=== PATIENT | male | born 1945 | race African-American/Black ===

== ENCOUNTER 2016-05-22 20:36 | Emergency (ER) | payer MEDICARE, MEDICAID ==
[~2016-05-22] VITALS: Ht 185.4 cm; Wt 90.0 kg
[~2016-05-22 20:36] MED LIST: DRIS50002 PO; GABA300C3 PO; NOVO7030P2 SQ; OMEG1CAP53 PO; PRIL20CA PO; SULF10SU3 RIGHT EYE; WALKER STANDARD
[2016-05-22 20:43] VITALS: BP 164/84; PULSE 60; RESP 16; TEMP 97.8; O2SAT 99
[2016-05-22] MEDS ORDERED: SODIUM CHLOR 0.9% 1000 ML INJ 1,000 ML IV SCH (20:53)
[2016-05-22] MEDS ORDERED: ONDANSETRON HCL 4 MG/2 ML VIAL IVP ONE (21:00)
--- NOTE | 2016-05-22 21:25 | PD ---
HPI Chief Complaint: GI Complaint Time Seen by Provider: 21:20 Travel History International Travel<30 days: No Contact w/Intl Traveler<30days: No Traveled to known affect area: No History of Present Illness HPI 70-year-old male that presents to the ED for evaluation of nausea and vomiting. Per patient his been ongoing since today. Per patient he does have some epigastric pain when he throws up. Per patient he had 3 episodes while waiting to be seen. Patient states that his doctor decided any medication he doesn't know this is the cause of the symptoms. He denies any lower abdominal pain. No chest pain or shortness of breath. Patient denies any diarrhea or bowel movement issues. No new foods. Has no allergies to medication. Has not taken anything for this. Per patient he started since this morning. No blood. Pain is 2 out of 10 on his epigastric area and gets worse when he throws up. PFSH Past Medical History Arthritis: Yes Asthma: No Blood Disorders: No Anxiety: No Depression: No Heart Rhythm Problems: No Cancer: No Cardiovascular Problems: Yes (htn) High Cholesterol: No Chemotherapy: No Chest Pain: No Congestive Heart Failure: No COPD: No Diabetes: Yes Patient Takes Glucophage: Yes Diminished Hearing: No Endocrine: Yes GERD: Yes Genitourinary: No Hepatitis: Yes (C) Hiatal Hernia: No Hypertension: Yes Immune Disorder: No Implanted Vascular Access Dvce: Yes Musculoskeletal: Yes (HIP REPLACEMENT) Neurologic: No Psychiatric: No Reproductive: No Respiratory: No Immunizations Current: No Pancreatitis: Yes Radiation Therapy: No Sleep Apnea: No Thyroid Disease: No Ulcer: No Influenza Vaccination: Yes Past Surgical History Abdominal Surgery: Yes (CHOLECYSTECTOMY) AICD: No Appendectomy: Yes Arteriovenous Shunt: No Body Medical Devices: HIP REPLACEMENT Cardiac Surgery: No Cholecystectomy: Yes Ear Surgery: No Endocrine Surgery: No Eye Surgery: No Genitourinary Surgery: No Gynecologic Surgery: No Insulin Pump: No Joint Replacement: Yes (LEFT HIP) Neurologic Surgery: No Oral Surgery: No Thoracic Surgery: No Other Surgery: Yes (LEFT FOOT WOUND VAC) Social History Alcohol Use: Yes (OCCASIONALLY) Tobacco Use: No Substance Use: Yes (COCAINE OCC) Allergies-Medications (Allergen,Severity, Reaction): Coded Allergies: No Known Allergies (Verified , 05/22/16) Reported Meds & Prescriptions Reported Meds & Active Scripts Active Zofran (Ondansetron HCl) 4 Mg Tab 4 Mg PO Q6HR PRN Keflex (Cephalexin) 500 Mg Cap 500 Mg PO BID 7 Days Walker Standard 1 Ea Reported Lidocaine Topical (Lidocaine HCl) 5 % Cream 1 Applic TOPICAL DAILY PRN Naproxen 500 Mg Tab 550 Mg PO BID Amlodipine (Amlodipine Besylate) 10 Mg Tab 10 Mg PO DAILY Glyburide 5 Mg Tab 5 Mg PO DAILY Take with meals at the same time each day Tamsulosin (Tamsulosin HCl) 0.4 Mg Cap 0.4 Mg PO HS [id number] Un1 50,000 Unt Cap 50,000 Units PO WEEKLY Gabapentin 300 Mg Cap 300 Mg PO TID Review of Systems Except as stated in HPI: all other systems reviewed are Neg Physical Exam Narrative GENERAL: SKIN: Warm and dry. HEAD: Atraumatic. Normocephalic. EYES: Pupils equal and round. No scleral icterus. No injection or drainage. ENT: No nasal bleeding or discharge. Mucous membranes pink and moist. Tongue is midline. No uvula deviation. NECK: Trachea midline. No JVD. CARDIOVASCULAR: Regular rate and rhythm. No murmurs, S3, S4. RESPIRATORY: No accessory muscle use. Clear to auscultation. Breath sounds equal bilaterally. GASTROINTESTINAL: Abdomen soft, non-tender, nondistended. Hepatic and splenic margins not palpable. MUSCULOSKELETAL: Extremities without clubbing, cyanosis, or edema. No obvious deformities. Patient has full range of motion of the upper and lower extremities bilaterally. 2+ pulses bilaterally. NEUROLOGICAL: Awake and alert. No obvious cranial nerve deficits. Motor grossly within normal limits. Five out of 5 muscle strength in the arms and legs. Normal speech. PSYCHIATRIC: Appropriate mood and affect; insight and judgment normal. Data Data Last Documented VS Vital Signs Date Time Temp Pulse Resp B/P Pulse Ox O2 Delivery O2 Flow Rate FiO2 05/22/16 21:48 74 18 142/66 98 05/22/16 20:43 97.8 Orders Complete Blood Count With Diff (05/22/16 20:53) Comprehensive Metabolic Panel (05/22/16 20:53) Lipase (05/22/16 20:53) Urinalysis - C+S If Indicated (05/22/16 20:53) Iv Access Insert/Monitor (05/22/16 20:53) NPO (05/22/16 20:53) Ondansetron Inj (Zofran Inj) (05/22/16 21:00) Sodium Chlor 0.9% 1000 Ml Inj (Ns 1000 M (05/22/16 20:53) Blood Glucose (05/22/16 21:03) Urine Culture (05/22/16 21:10) Cephalexin (Keflex) (05/22/16 23:00) Labs Laboratory Tests Test 05/22/16 05/22/16 21:10 21:40 Urine Color LIGHT-YELLOW Urine Turbidity CLEAR Urine pH 6.0 Urine Specific [place] 1.012 Urine Protein 30 mg/dL Urine Glucose (UA) 300 mg/dL Urine Ketones NEG mg/dL Urine Occult Blood TRACE Urine Nitrite NEG Urine Bilirubin NEG Urine Urobilinogen LESS THAN 2.0 MG/DL Urine Leukocyte Esterase MOD Urine RBC 1 /hpf Urine WBC 15 /hpf Urine WBC Clumps RARE Urine Squamous Epithelial <1 /hpf Cells Urine Bacteria OCC /hpf Microscopic Urinalysis Comment CULTURE INDICATED White Blood Count 6.9 TH/MM3 Red Blood Count 4.59 MIL/MM3 Hemoglobin 14.1 GM/DL Hematocrit 42.8 % Mean Corpuscular Volume 93.3 FL Mean Corpuscular Hemoglobin 30.6 PG Mean Corpuscular Hemoglobin 32.8 % Concent Red Cell Distribution Width 13.0 % Platelet Count 170 TH/MM3 Mean Platelet Volume 9.8 FL Neutrophils (%) (Auto) 67.9 % Lymphocytes (%) (Auto) 24.4 % Monocytes (%) (Auto) 5.9 % Eosinophils (%) (Auto) 1.4 % Basophils (%) (Auto) 0.4 % Neutrophils # (Auto) 4.7 TH/MM3 Lymphocytes # (Auto) 1.7 TH/MM3 Monocytes # (Auto) 0.4 TH/MM3 Eosinophils # (Auto) 0.1 TH/MM3 Basophils # (Auto) 0.0 TH/MM3 CBC Comment DIFF FINAL Differential Comment Sodium Level 136 MEQ/L Potassium Level 4.5 MEQ/L Chloride Level 104 MEQ/L Carbon Dioxide Level 23.6 MEQ/L Anion Gap 8 MEQ/L Blood Urea Nitrogen 31 MG/DL Creatinine 2.29 MG/DL Estimat Glomerular Filtration 35 ML/MIN Rate Random Glucose 196 MG/DL Calcium Level 9.1 MG/DL Total Bilirubin 0.5 MG/DL Aspartate Amino Transf 43 U/L (AST/SGOT) Alanine Aminotransferase 64 U/L (ALT/SGPT) Alkaline Phosphatase 79 U/L Total Protein 7.8 GM/DL Albumin 3.8 GM/DL Lipase 585 U/L MDM Medical Decision Making Medical Screen Exam Complete: Yes Emergency Medical Condition: Yes Medical Record Reviewed: Yes Interpretation(s) CBC & BMP Diagram 05/22/16 21:40 lipase slighlty elevated in the 500s UA shows UTI LFTS WNL Differential Diagnosis Nausea and vomiting versus gastritis versus gastroenteritis versus food poisoning versus gastroenteritis versus obstruction versus medication side effect versus less likely DKA Narrative Course 70-year-old male that presents to the ED for evaluation of nausea and vomiting. Patient was properly examined and was found to have signs and symptoms consistent with nausea and vomiting. Some epigastric pain noted. Unclear etiology. Patient cannot really tell me what his new medication is. At this time I recommend labs and imaging. Patient agrees. Patient was given IV fluids and Zofran. Labs shows UTI and slight pancreatitis. Case discussed in my attending Dr Rowland who agrees with plan. By mouth challenge will be done. Patient able to tolerate by mouth challenge patient will be sent home with instructions to follow up with PCP. Patient will be given prescriptions for Keflex as well as Zofran. Told to the liquid diet. See ED for any worsening symptoms. Patient was made aware of all findings as well as reasons to come back and he agrees. Diagnosis Primary Impression: Pancreatitis, acute Qualified Code: K85.90 - Acute pancreatitis, unspecified complication status, unspecified pancreatitis type Patient Instructions: General Instructions Additional Instructions: Liquid diet for the next couple of days. Take medications as prescribed. See ED for any worsening symptoms including not able to tolerate anything by mouth, worsening pain, fevers chills or sweats. Med/Other Pt SpecificInfo: Prescription(s) given Scripts Ondansetron (Zofran)4 Mg Tab4 Mg PO Q6HR PRN (NAUSEA OR VOMITING) #20 TAB Prov:Garima Rowland MD 05/22/16 Cephalexin (Keflex)500 Mg [id number] Mg PO BID 7 Days Prov:Garima Rowland MD 05/22/16 Disposition: 01 DISCHARGE HOME Condition: Stable Shane Rojo May 22, 2016 21:25
[2016-05-22 21:48] VITALS: BP 142/66; PULSE 74; RESP 18; O2SAT 98
[2016-05-22] MEDS ORDERED: NAPR500T PO (21:53)
[2016-05-22] MEDS ORDERED: AMLO10TA2 PO (21:53)
[2016-05-22] MEDS ORDERED: LIDO1CRE8 TOPICAL (21:53)
[2016-05-22] MEDS ORDERED: GLYB5TAB3 PO (21:53)
[2016-05-22] MEDS ORDERED: TAMS0.4C4 PO (21:53)
[2016-05-22 22:22] LABS: AUTOMATED NEUTROPHIL # 4.7 TH/MM3 (1.8-7.7); BASOPHIL % 0.4 % (0.0-2.0); EOSINOPHIL # 0.1 TH/MM3 (0-0.4); EOSINOPHIL % 1.4 % (0.0-4.0); HEMATOCRIT 42.8 % (39.0-51.0); HEMO FLAGS DIFF FINAL; LYMPH % 24.4 % (9.0-44.0); LYMPHOCYTE # 1.7 TH/MM3 (1.0-4.8); MEAN CELL VOLUME 93.3 FL (80.0-100.0); MEAN CORPUSCULAR HEMOGLOBIN 30.6 PG (27.0-34.0); MEAN CORPUSCULAR HGB CONC 32.8 % (32.0-36.0); MONO % 5.9 % (0.0-8.0); NEUT % 67.9 % (16.0-70.0); PLATELET COUNT 170 TH/MM3 (150-450); RED BLOOD COUNT 4.59 MIL/MM3 (4.50-5.90); WHITE BLOOD COUNT 6.9 TH/MM3 (4.0-11.0)
[2016-05-22 22:30] LABS: BACTERIA, URINE OCC /hpf; BLOOD, URINE TRACE (NEG); COMMENT (UR) CULTURE INDICATED; CULTURE IF INDICATED CULTURE INDICATED; GLUCOSE,URINE 300 mg/dL (NEG); KETONE, URINE NEG (NEG); NITRITE,URINE NEG (NEG); SQUAMOUS EPITHELIAL CELL URINE <1 /hpf (0-5); URINE COLOR LIGHT-YELLOW (YELLW/STRAW)
[2016-05-22 22:51] LABS: ALKALINE PHOSPHATASE 79 U/L (45-117); ALT (GPT) 64 U/L (12-78); ANION GAP 8 MEQ/L (5-15); AST (GOT) 43 U/L (15-37); BICARBONATE 23.6 MEQ/L (21.0-32.0); BLOOD UREA NITROGEN 31 MG/DL (7-18); CHLORIDE 104 MEQ/L (98-107); GLOMERULAR FILTRATION RATE 35 ML/MIN (>89); POTASSIUM 4.5 MEQ/L (3.5-5.1); SODIUM (NA) 136 MEQ/L (136-145); TOTAL BILIRUBIN ADULT 0.5 MG/DL (0.2-1.0)
[2016-05-22] MEDS ORDERED: CEPHALEXIN MONOHYDRATE 500 MG CAP PO ONE (23:00)
[2016-05-22] MEDS ORDERED: CEPH-460 PO (23:01)
[2016-05-22] MEDS ORDERED: ZOFR4TAB PO (23:01)
[2016-05-23 00:02] VITALS: BP 158/74
== END 2016-05-23 00:16 | disposition home or self-care (01) ==
LOC: NEPE 20:36
DX: K85.90 Acute pancreatitis without necrosis or infection, unspecified (principal); N39.0 Urinary tract infection, site not specified; I10 Essential (primary) hypertension; E11.9 Type 2 diabetes mellitus without complications; K21.9 Gastro-esophageal reflux disease without esophagitis; B95.7 Other staphylococcus as the cause of diseases classified elsewhere
CPT/HCPCS: 80053; 81001; 83690; 85025; 86403; 87077; 87086; 87186; 96361; 96374; 99284; J2405; J7030

== ENCOUNTER 2016-12-28 03:00 | Emergency (ER) | payer MEDICARE, MEDICAID ==
[~2016-12-28] VITALS: Ht 182.9 cm; Wt 73.0 kg
[~2016-12-28 03:00] MED LIST changes: +AMLO10TA2 PO; +CEPH-460 PO; +GLYB5TAB3 PO; +LIDO1CRE8 TOPICAL; +NAPR500T PO; -NOVO7030P2 SQ; -OMEG1CAP53 PO; -PRIL20CA PO; -SULF10SU3 RIGHT EYE; +TAMS0.4C4 PO; +ZOFR4TAB PO
[2016-12-28 03:03] VITALS: BP 135/85; PULSE 70; RESP 18; TEMP 98.2; O2SAT 100
--- NOTE | 2016-12-28 03:22 | PD ---
HPI Chief Complaint: Abdominal Pain Time Seen by Provider: 03:22 Travel History International Travel<30 days: No Contact w/Intl Traveler<30days: No Traveled to known affect area: No History of Present Illness HPI 71-year-old male came to the emergency room brought by EMS for vomiting. Patient said that he ate barbecue chicken earlier today and since then he hasn' t been able to stop throwing up. His last vomit was about 2 hours ago. No history of diarrhea. No history of any other sick people from eating the same food. Patient is legally blind. Vital signs otherwise stable. [facility] Past Medical History Narrative Medical List of his past medical, surgical, social and family history is reviewed from the nursing note. Arthritis: Yes Asthma: No Blood Disorders: No Anxiety: No Depression: No Heart Rhythm Problems: No Cancer: No Cardiovascular Problems: Yes High Cholesterol: No Chemotherapy: No Chest Pain: No Congestive Heart Failure: No COPD: No Diabetes: Yes Patient Takes Glucophage: Yes Diminished Hearing: No Endocrine: Yes GERD: Yes Genitourinary: No Hepatitis: Yes (C) Hiatal Hernia: No Hypertension: Yes Immune Disorder: No Implanted Vascular Access Dvce: Yes Musculoskeletal: Yes (HIP REPLACEMENT) Neurologic: No Psychiatric: No Reproductive: No Respiratory: No Immunizations Current: Yes Pancreatitis: Yes Radiation Therapy: No Sleep Apnea: No Thyroid Disease: No Ulcer: No Tetanus Vaccination: < 5 Years Influenza Vaccination: Yes Past Surgical History Abdominal Surgery: Yes (CHOLECYSTECTOMY) AICD: No Appendectomy: Yes Arteriovenous Shunt: No Body Medical Devices: HIP REPLACEMENT Cardiac Surgery: No Cholecystectomy: Yes Ear Surgery: No Endocrine Surgery: No Eye Surgery: No Genitourinary Surgery: No Gynecologic Surgery: No Insulin Pump: No Joint Replacement: Yes (LEFT HIP) Neurologic Surgery: No Oral Surgery: No Thoracic Surgery: No Other Surgery: Yes (LEFT FOOT WOUND VAC) Social History Alcohol Use: Yes (OCCASIONALLY) Tobacco Use: No Substance Use: Yes (COCAINE OCC) Allergies-Medications (Allergen,Severity, Reaction): Coded Allergies: No Known Allergies (Verified , 12/28/16) Comments No known drug allergies. Reported Meds & Prescriptions Reported Meds & Active Scripts Active Zofran Odt (Ondansetron Odt) 4 Mg Tab 4 Mg SL Q12HR PRN Reported Naproxen 500 Mg Tab 550 Mg PO BID Amlodipine (Amlodipine Besylate) 10 Mg Tab 10 Mg PO DAILY Glyburide 5 Mg Tab 5 Mg PO DAILY Take with meals at the same time each day Tamsulosin (Tamsulosin HCl) 0.4 Mg Cap 0.4 Mg PO HS Narrative Medication List of his home medications reviewed from the nursing note. Review of Systems Except as stated in HPI: all other systems reviewed are Neg Physical Exam Narrative GENERAL: Awake, alert, moderate distress SKIN: Focused skin assessment warm/dry. HEAD: Atraumatic. Normocephalic. EYES: Pupils equal and round. No scleral icterus. No injection or drainage. Legally blind ENT: No nasal bleeding or discharge. Mucous membranes pink and moist. NECK: Trachea midline. No JVD. CARDIOVASCULAR: Regular rate and rhythm. No murmur appreciated. RESPIRATORY: No accessory muscle use. Clear to auscultation. Breath sounds equal bilaterally. GASTROINTESTINAL: Abdomen soft, non-tender, nondistended. Hepatic and splenic margins not palpable. MUSCULOSKELETAL: No obvious deformities. No clubbing. No cyanosis. No edema. NEUROLOGICAL: Awake and alert. No obvious cranial nerve deficits. Motor grossly within normal limits. Normal speech. PSYCHIATRIC: Appropriate mood and affect; insight and judgment normal. Data Data Last Documented VS Orders Orders Complete Blood Count With Diff (12/28/16 03:40) Comprehensive Metabolic Panel (12/28/16 03:40) Lipase (12/28/16 03:40) Urinalysis - C+S If Indicated (12/28/16 03:40) Ct Abd/Pel W/O Iv Contrast (12/28/16 03:40) Iv Access Insert/Monitor (12/28/16 03:40) Ecg Monitoring (12/28/16 03:40) Oximetry (12/28/16 03:40) Ondansetron Inj (Zofran Inj) (12/28/16 03:45) Sodium Chlor 0.9% 1000 Ml Inj (Ns 1000 M (12/28/16 03:40) Sodium Chloride 0.9% Flush (Ns Flush) (12/28/16 03:45) Sodium Chlor 0.9% 1000 Ml Inj (Ns 1000 M (12/28/16 05:30) Labs Laboratory Tests Test 12/28/16 03:45 12/28/16 05:40 White Blood Count 8.2 TH/MM3 Red Blood Count 4.76 MIL/MM3 Hemoglobin 13.6 GM/DL Hematocrit 41.4 % Mean Corpuscular Volume 87.1 FL Mean Corpuscular Hemoglobin 28.6 PG Mean Corpuscular Hemoglobin Concent 32.8 % Red Cell Distribution Width 14.7 % Platelet Count 221 TH/MM3 Mean Platelet Volume 9.9 FL Neutrophils (%) (Auto) 60.1 % Lymphocytes (%) (Auto) 30.8 % Monocytes (%) (Auto) 7.2 % Eosinophils (%) (Auto) 1.2 % Basophils (%) (Auto) 0.7 % Neutrophils # (Auto) 4.9 TH/MM3 Lymphocytes # (Auto) 2.5 TH/MM3 Monocytes # (Auto) 0.6 TH/MM3 Eosinophils # (Auto) 0.1 TH/MM3 Basophils # (Auto) 0.1 TH/MM3 CBC Comment DIFF FINAL Differential Comment Blood Urea Nitrogen 27 MG/DL Creatinine 3.34 MG/DL Random Glucose 174 MG/DL Total Protein 8.7 GM/DL Albumin 3.8 GM/DL Calcium Level 10.0 MG/DL Alkaline Phosphatase 76 U/L Aspartate Amino Transf (AST/SGOT) 54 U/L Alanine Aminotransferase (ALT/SGPT) 53 U/L Total Bilirubin 0.9 MG/DL Sodium Level 139 MEQ/L Potassium Level 5.1 MEQ/L Chloride Level 105 MEQ/L Carbon Dioxide Level 24.9 MEQ/L Anion Gap 9 MEQ/L Estimat Glomerular Filtration Rate 22 ML/MIN Lipase 235 U/L Urine Color YELLOW Urine Turbidity CLEAR Urine pH 5.5 Urine Specific [place] 1.021 Urine Protein 100 mg/dL Urine Glucose (UA) 70 mg/dL Urine Ketones 10 mg/dL Urine Occult Blood SMALL Urine Nitrite NEG Urine Bilirubin NEG Urine Urobilinogen LESS THAN 2.0 MG/DL Urine Leukocyte Esterase NEG Urine RBC LESS THAN 1 /hpf Urine WBC LESS THAN 1 /hpf Urine Squamous Epithelial Cells <1 /hpf Urine Mucus FEW /lpf Microscopic Urinalysis Comment CULT NOT INDICATED MDM Medical Decision Making Medical Screen Exam Complete: Yes Emergency Medical Condition: Yes Medical Record Reviewed: Yes Differential Diagnosis Food poisoning, acute gastroenteritis, small bowel obstruction Narrative Course 4:39 AM CBC is back and within normal limit. Awaiting for the chemistry and the CT scan to be done and resulted. She was given IV fluid and IV Zofran. 5:[address] abdomen and pelvis are within normal limit. CBC was negative but his chemistry showed renal insufficiency. However upon tracking back his labs patient has had renal insufficiency. He is given another IV fluid bolus. Awaiting for her urine. Procedures EKG Prior to Arrival: No Diagnosis Primary Impression: Food poisoning Additional Impressions: Dehydration Chronic kidney disease, stage IV (severe) Referrals: Primary Care Physician Additional Instructions: Please return to the ER if the condition worsens or any other new concerns. I' ll up with her primary care as well as her kidney doctor. Drink lots of fluid to keep yourself hydrated. Take the medication as per the prescription direction. Med/Other Pt SpecificInfo: Prescription(s) given Scripts Ondansetron Odt (Zofran Odt) 4 Mg Tab 4 MG SL Q12HR Y for Nausea/Vomiting, #15 TAB 0 Refills Prov: Regan Montoya MD 12/28/16 Disposition: 01 DISCHARGE HOME Condition: Stable Regan Montoya MD Dec 28, 2016 03:22
[2016-12-28] MEDS ORDERED: SODIUM CHLOR 0.9% 1000 ML INJ 1,000 ML IV SCH (03:40)
[2016-12-28] MEDS ORDERED: SODIUM CHLORIDE 0.9% FLUSH 10 ML FLUSH IV FLUSH PRN (03:45)
[2016-12-28] MEDS ORDERED: ONDANSETRON HCL 4 MG/2 ML VIAL IVP ONE (03:45)
[2016-12-28 03:49] VITALS: O2SAT 98
[2016-12-28 04:16] LABS: AUTOMATED NEUTROPHIL # 4.9 TH/MM3 (1.8-7.7); BASOPHIL # 0.1 TH/MM3 (0-0.2); BASOPHIL % 0.7 % (0.0-2.0); EOSINOPHIL # 0.1 TH/MM3 (0-0.4); EOSINOPHIL % 1.2 % (0.0-4.0); HEMATOCRIT 41.4 % (39.0-51.0); HEMO FLAGS DIFF FINAL; LYMPH % 30.8 % (9.0-44.0); LYMPHOCYTE # 2.5 TH/MM3 (1.0-4.8); MEAN CELL VOLUME 87.1 FL (80.0-100.0); MEAN CORPUSCULAR HEMOGLOBIN 28.6 PG (27.0-34.0); MEAN CORPUSCULAR HGB CONC 32.8 % (32.0-36.0); MONO % 7.2 % (0.0-8.0); NEUT % 60.1 % (16.0-70.0); PLATELET COUNT 221 TH/MM3 (150-450); RED BLOOD COUNT 4.76 MIL/MM3 (4.50-5.90); RED CELL DISTRIBUTION WIDTH 14.7 % (11.6-17.2); WHITE BLOOD COUNT 8.2 TH/MM3 (4.0-11.0)
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
[2016-12-28 04:52] LABS: ALT (GPT) 53 U/L (12-78); ANION GAP 9 MEQ/L (5-15); AST (GOT) 54 U/L (15-37); BICARBONATE 24.9 MEQ/L (21.0-32.0); BLOOD UREA NITROGEN 27 MG/DL (7-18); CHLORIDE 105 MEQ/L (98-107); GLOMERULAR FILTRATION RATE 22 ML/MIN (>89); SODIUM (NA) 139 MEQ/L (136-145)
[2016-12-28 04:53] LABS: POTASSIUM 5.1 MEQ/L (3.5-5.1)
[2016-12-28 04:54] LABS: ALKALINE PHOSPHATASE 76 U/L (45-117); TOTAL BILIRUBIN ADULT 0.9 MG/DL (0.2-1.0)
[2016-12-28] MEDS ORDERED: SODIUM CHLOR 0.9% 1000 ML INJ 1,000 ML IV ONE (05:30)
[2016-12-28 06:11] LABS: BLOOD, URINE SMALL (NEG); COMMENT (UR) CULT NOT INDICATED; CULTURE IF INDICATED CULT NOT INDICATED; GLUCOSE,URINE 70 mg/dL (NEG); KETONE, URINE 10 mg/dL (NEG); MUCUS URINE FEW /lpf (OCC); NITRITE,URINE NEG (NEG); PH, URINE 5.5 (5.0-8.5); SQUAMOUS EPITHELIAL CELL URINE <1 /hpf (0-5); URINE COLOR YELLOW (YELLW/STRAW)
[2016-12-28] MEDS ORDERED: ZOFR4TAB3 SL (06:16)
== END 2016-12-28 08:09 | disposition home or self-care (01) ==
LOC: NEPE 03:00
DX: T62.8X1A Toxic effect of other specified noxious substances eaten as food, accidental (unintentional), initial encounter (principal); E86.0 Dehydration; N18.4 Chronic kidney disease, stage 4 (severe); I12.9 Hypertensive chronic kidney disease with stage 1 through stage 4 chronic kidney disease, or unspecified chronic kidney disease; E11.9 Type 2 diabetes mellitus without complications; H54.8 Legal blindness, as defined in USA; Z79.84 Long term (current) use of oral hypoglycemic drugs; Z87.39 Personal history of other diseases of the musculoskeletal system and connective tissue; Z86.79 Personal history of other diseases of the circulatory system; Z87.19 Personal history of other diseases of the digestive system; Z86.19 Personal history of other infectious and parasitic diseases
CPT/HCPCS: 74176; 80053; 81001; 83690; 85025; 96361; 96374; 99285; J2405; J7030

== ENCOUNTER 2017-01-06 15:19 | Emergency (ER) | payer MEDICARE, MEDICAID ==
[~2017-01-06 15:19] MED LIST changes: -CEPH-460 PO; -DRIS50002 PO; -GABA300C3 PO; -LIDO1CRE8 TOPICAL; -WALKER STANDARD; -ZOFR4TAB PO; +ZOFR4TAB3 SL
[2017-01-06 15:24] VITALS: BP 140/88; PULSE 102; RESP 16; TEMP 98.2; O2SAT 99
--- NOTE | 2017-01-06 15:43 | PD ---
Physical Exam Date Seen by Provider: Jan 06, 2017 Time Seen by Provider: 15:40 Narrative Pt reports right hand and wrist pain after having repeated IV attempts last week. Pt states his whole hand hurts. He stated the IV attempt was in the right wrist. Pain is increased with movement. He also reports neck and left knee pain. He states he was here for a stomach virus last week. He denies any complaints related to the previous presenting complaints. Pt states his pain is an 8/10. VSS, awaiting bed placement. Data Data Last Documented VS Vital Signs Date Time Temp Pulse Resp B/P (MAP) Pulse Ox O2 Delivery O2 Flow Rate FiO2 01/06/17 15:24 98.2 102 16 140/88 (105) 99 MDM Supervised Visit with JONATHAN: Mindi Steiner Jan 06, 2017 15:43
[2017-01-06] MEDS ORDERED: PRED20 PO (16:41)
--- NOTE | 2017-01-06 16:46 | PD ---
HPI Chief Complaint: Pain: Acute or Chronic Time Seen by Provider: 16:27 Travel History International Travel<30 days: No Contact w/Intl Traveler<30days: No Traveled to known affect area: No History of Present Illness HPI This patient complains of right wrist pain. It's worse with movement. Severity is moderate. No fever or acute injury. He says it started to hurt a day after he was seen here in the ER and had some IV placement attempts near the right wrist. PFSH Past Medical History Arthritis: Yes Asthma: No Blood Disorders: No Anxiety: No Depression: No Heart Rhythm Problems: No Cancer: No Cardiovascular Problems: Yes High Cholesterol: No Chemotherapy: No Chest Pain: No Congestive Heart Failure: No COPD: No Diabetes: Yes Diminished Hearing: No Endocrine: Yes GERD: Yes Genitourinary: No Hepatitis: Yes (C) Hiatal Hernia: No Hypertension: Yes Immune Disorder: No Implanted Vascular Access Dvce: Yes Musculoskeletal: Yes (HIP REPLACEMENT) Neurologic: No Psychiatric: No Reproductive: No Respiratory: No Immunizations Current: Yes Pancreatitis: Yes Radiation Therapy: No Sleep Apnea: No Thyroid Disease: No Ulcer: No Past Surgical History Abdominal Surgery: Yes (CHOLECYSTECTOMY) AICD: No Appendectomy: Yes Arteriovenous Shunt: No Body Medical Devices: HIP REPLACEMENT Cardiac Surgery: No Cholecystectomy: Yes Ear Surgery: No Endocrine Surgery: No Eye Surgery: No Genitourinary Surgery: No Gynecologic Surgery: No Insulin Pump: No Joint Replacement: Yes (LEFT HIP) Neurologic Surgery: No Oral Surgery: No Thoracic Surgery: No Other Surgery: Yes (LEFT FOOT WOUND VAC) Social History Alcohol Use: Yes (OCCASIONALLY) Tobacco Use: No Substance Use: Yes (COCAINE OCC) Allergies-Medications (Allergen,Severity, Reaction): Coded Allergies: No Known Allergies (Verified , 12/28/16) Reported Meds & Prescriptions Reported Meds & Active Scripts Active Prednisone 20 Mg Tab 40 Mg PO DAILY Take 40 mg (2 tablets) daily for 5 days Zofran Odt (Ondansetron Odt) 4 Mg Tab 4 Mg SL Q12HR PRN Reported Naproxen 500 Mg Tab 550 Mg PO BID Amlodipine (Amlodipine Besylate) 10 Mg Tab 10 Mg PO DAILY Glyburide 5 Mg Tab 5 Mg PO DAILY Take with meals at the same time each day Tamsulosin (Tamsulosin HCl) 0.4 Mg Cap 0.4 Mg PO HS Review of Systems Cardiovascular: No: Chest Pain or Discomfort Respiratory: No: Cough Gastrointestinal: No: Nausea Physical Exam Narrative SKIN: Focused skin assessment reveals no rash or ulcers. Skin is warm and dry. Palpation shows no induration or nodules. GASTROINTESTINAL: Abdomen soft, non-tender, nondistended. Positive bowel sounds. No hepato-splenomegaly, or palpable masses. No guarding. Right wrist: There is no ecchymosis or erythema or open wound. Pulse capillary refill and sensation are intact. He does have pain with movement of the wrist. Seems to be a bit of swelling there. No tense compartments. No warmth. Data Data Last Documented VS Vital Signs Date Time Temp Pulse Resp B/P (MAP) Pulse Ox O2 Delivery O2 Flow Rate FiO2 01/06/17 15:24 98.2 102 16 140/88 (105) 99 Orders Orders Splint Or Brace Apply/Monitor (01/06/17 16:39) MDM Medical Decision Making Medical Screen Exam Complete: Yes Emergency Medical Condition: Yes Medical Record Reviewed: Yes Differential Diagnosis Inflammatory arthritis, nerve injury, cellulitis Narrative Course I have reviewed the patient's electronic medical record. Reviewed his ER visit from 9 days ago I don't see any sign of infection. There is been no injury. Not convinced this is anything to do with IV placement attempts. I think he has an inflammatory arthritis of the right wrist. Could be gout. I don't have any suspicion of septic joint. I gave him a Velcro wrist splint to wear and recommended he ice and elevate. I wrote him 5 days of prednisone. He should watch his sugar closely. He takes Dilaudid from pain management chronically so I did not write further pain medicine. He is to call his family physician and get follow-up Diagnosis Primary Impression: Inflammatory arthritis Additional Instructions: The patient was advised to follow up with their physician and return if they worsen. Wear Velcro wrist splint Ice and elevate right wrist Check sugar frequently while taking prednisone Med/Other Pt SpecificInfo: Prescription(s) given Scripts Prednisone (Prednisone) 20 Mg Tab 40 MG PO DAILY, #10 TAB 0 Refills Take 40 mg (2 tablets) daily for 5 days Prov: Christo Choi MD 01/06/17 Disposition: 01 DISCHARGE HOME Condition: Stable Christo Choi MD Jan 06, 2017 16:46
[2017-01-06 17:59] VITALS: BP 153/79
== END 2017-01-06 18:00 | disposition home or self-care (01) ==
LOC: NEPD 15:19
DX: M13.831 Other specified arthritis, right wrist (principal)
CPT/HCPCS: 99283; L3908

== ENCOUNTER 2017-02-16 15:45 | Observation (INO) | payer MEDICARE, MEDICAID ==
[2017-02-16] VITALS (7 sets, daily range): BP systolic 114–166; BP diastolic 81–100; PULSE 65–86; RESP 13–19; TEMP 98–98.7; O2SAT 93–100
[~2017-02-16] VITALS: Ht 188 cm; Wt 93.0 kg
[~2017-02-16 15:45] MED LIST changes: +PRED20 PO
[2017-02-16] MEDS ORDERED: SODIUM CHLOR 0.9% 1000 ML INJ 1,000 ML IV SCH ×2 (16:19→17:09)
--- NOTE | 2017-02-16 16:23 | RADRPT ---
EXAM DATE/TIME: 02/16/2017 16:16 [facility] COMPARISON: CHEST PA & LAT, July 17, 2013, 8:29. CHEST SINGLE AP, October 23, 2015, 12:56. INDICATIONS : Chest pain MEDICAL HISTORY : Hypertension. Hepatitis C. Diabetes mellitus type 2. SURGICAL HISTORY : Cholecystectomy. Appendectomy ENCOUNTER: Initial ACUITY: 1 day PAIN SCORE: 5/10 LOCATION: chest FINDINGS: The lungs are clear. The heart size is normal. The ascending aortic contour is prominent, and an aneu rysm can have this appearance. Osseous structures are intact. CONCLUSION: Prominent ascending aortic contour is identified, aneurysm can have this appearance. The lungs are cl ear. Miguel Galeas MD on February 16, 2017 at 16:21 Board Certified Radiologist. This report was verified electronically.
[2017-02-16] MEDS ORDERED: MORPHINE SULFATE 4 MG/ML INJ IV PUSH ONE (16:30)
[2017-02-16] MEDS ORDERED: FAMOTIDINE 20 MG/2 ML VIAL IV PUSH ONE (16:30)
[2017-02-16] MEDS ORDERED: ONDANSETRON HCL 4 MG/2 ML VIAL IVP ONE (16:30)
[2017-02-16] MEDS ORDERED: ASPIRIN 325 MG TAB PO ONE (16:30)
[2017-02-16] MEDS ORDERED: HYDROmorphone HCL PF 1 MG/ML VIAL IV PUSH ONE (16:30)
[2017-02-16 16:51] LABS: AUTOMATED NEUTROPHIL # 8.1 TH/MM3 (1.8-7.7); BASOPHIL % 0.3 % (0.0-2.0); HEMATOCRIT 48.3 % (39.0-51.0); HEMO FLAGS DIFF FINAL; LYMPH % 18.4 % (9.0-44.0); LYMPHOCYTE # 1.9 TH/MM3 (1.0-4.8); MEAN CELL VOLUME 90.3 FL (80.0-100.0); MEAN CORPUSCULAR HEMOGLOBIN 29.4 PG (27.0-34.0); MEAN CORPUSCULAR HGB CONC 32.6 % (32.0-36.0); MONO % 3.8 % (0.0-8.0); NEUT % 77.5 % (16.0-70.0); PLATELET COUNT 247 TH/MM3 (150-450); RED BLOOD COUNT 5.36 MIL/MM3 (4.50-5.90); RED CELL DISTRIBUTION WIDTH 14.6 % (11.6-17.2); WHITE BLOOD COUNT 10.5 TH/MM3 (4.0-11.0)
[2017-02-16 17:04] LABS: ANION GAP 16 MEQ/L (5-15); BICARBONATE 21.2 MEQ/L (21.0-32.0); BLOOD UREA NITROGEN 22 MG/DL (7-18); CHLORIDE 98 MEQ/L (98-107); GLOMERULAR FILTRATION RATE 26 ML/MIN (>89); POTASSIUM 4.3 MEQ/L (3.5-5.1); SODIUM (NA) 135 MEQ/L (136-145)
--- NOTE | 2017-02-16 17:06 | PD ---
HPI Chief Complaint: Chest Pain Time Seen by Provider: 16:17 Travel History International Travel<30 days: No Contact w/Intl Traveler<30days: No Traveled to known affect area: No History of Present Illness HPI 71-year-old male that presents to the ED for evaluation of epigastric pain, nausea and vomiting as well as chest pain. Per patient he believes he has food poisoning. Has had about 3 bowel movements since yesterday. States the chest pain started when he got here to the emergency room. Patient denies any cardiac history. He does have a history of diabetes and hypertension. He is legally blind. He states that his urine has been normal. He cannot see his stools that he cannot tell me if his bloody or not. Per patient and seems normal. He denies any pain when he has a bowel movement. He denies any allergies to medication. Has not seen anybody for this. Symptoms started yesterday. He denies any travel. Per patient the pain on the chest started before coming to the ED and he was 7 out of 10. Does not radiate and stays on the left side. Per patient without any medications he got better. She has vomited multiple times last time before coming to the ED. PFSH Past Medical History Arthritis: Yes Asthma: No Blood Disorders: No Anxiety: No Depression: No Heart Rhythm Problems: No Cancer: No Cardiovascular Problems: Yes High Cholesterol: Yes Chemotherapy: No Chest Pain: No Congestive Heart Failure: No COPD: No Diabetes: Yes Patient Takes Glucophage: No Diminished Hearing: No Endocrine: Yes GERD: Yes Genitourinary: No Hepatitis: Yes (C) Hiatal Hernia: No Hypertension: Yes Immune Disorder: No Implanted Vascular Access Dvce: Yes Musculoskeletal: Yes (HIP REPLACEMENT) Neurologic: No Psychiatric: No Reproductive: No Respiratory: No Immunizations Current: Yes Pancreatitis: Yes Radiation Therapy: No Sleep Apnea: No Thyroid Disease: No Ulcer: No Past Surgical History Abdominal Surgery: Yes (CHOLECYSTECTOMY) AICD: No Appendectomy: Yes Arteriovenous Shunt: No Body Medical Devices: HIP REPLACEMENT Cardiac Surgery: No Cholecystectomy: Yes Ear Surgery: No Endocrine Surgery: No Eye Surgery: No Genitourinary Surgery: No Gynecologic Surgery: No Insulin Pump: No Joint Replacement: Yes (LEFT HIP) Neurologic Surgery: No Oral Surgery: No Thoracic Surgery: No Other Surgery: Yes (LEFT FOOT WOUND VAC) Social History Alcohol Use: Yes Tobacco Use: No Substance Use: No Allergies-Medications (Allergen,Severity, Reaction): Coded Allergies: No Known Allergies (Verified , 02/16/17) Reported Meds & Prescriptions Reported Meds & Active Scripts Active Prednisone 20 Mg Tab 40 Mg PO DAILY Take 40 mg (2 tablets) daily for 5 days Zofran Odt (Ondansetron Odt) 4 Mg Tab 4 Mg SL Q12HR PRN Reported Naproxen 500 Mg Tab 550 Mg PO BID Amlodipine (Amlodipine Besylate) 10 Mg Tab 10 Mg PO DAILY Glyburide 5 Mg Tab 5 Mg PO DAILY Take with meals at the same time each day Tamsulosin (Tamsulosin HCl) 0.4 Mg Cap 0.4 Mg PO HS Review of Systems Except as stated in HPI: all other systems reviewed are Neg Physical Exam Narrative GENERAL: SKIN: Warm and dry. HEAD: Atraumatic. Normocephalic. EYES: Pupils equal and round. No scleral icterus. No injection or drainage. ENT: No nasal bleeding or discharge. Mucous membranes pink and moist. Tongue is midline. No uvula deviation. NECK: Trachea midline. No JVD. CARDIOVASCULAR: Regular rate and rhythm. No murmurs, S3, S4. RESPIRATORY: No accessory muscle use. Clear to auscultation. Breath sounds equal bilaterally. GASTROINTESTINAL: Abdomen soft, non-tender, nondistended. Hepatic and splenic margins not palpable. MUSCULOSKELETAL: Extremities without clubbing, cyanosis, or edema. No obvious deformities. Full range of motion of the upper and lower extremities bilaterally. 2+ pulses bilaterally. NEUROLOGICAL: Awake and alert. No obvious cranial nerve deficits. Motor grossly within normal limits. Five out of 5 muscle strength in the arms and legs. Normal speech. PSYCHIATRIC: Appropriate mood and affect; insight and judgment normal. Data Data Last Documented VS Vital Signs Date Time Temp Pulse Resp B/P (MAP) Pulse Ox O2 Delivery O2 Flow Rate FiO2 02/16/17 16:47 (112) Room Air 02/16/17 16:36 91 18 96 Orders Orders Electrocardiogram (02/16/17 15:54) Complete Blood Count With Diff (02/16/17 15:54) Basic Metabolic Panel (Bmp) (02/16/17 15:54) Ckmb (Isoenzyme) Profile (02/16/17 15:54) Troponin I (02/16/17 15:54) Chest, Single Ap (02/16/17 15:54) Hepatic Functional Panel (02/16/17 16:19) Lipase (02/16/17 16:19) Lactic Acid (02/16/17 16:19) Iv Access Insert/Monitor (02/16/17 16:19) Ecg Monitoring (02/16/17 16:19) Oximetry (02/16/17 16:19) Morphine Inj (Morphine Inj) (02/16/17 16:30) Ondansetron Inj (Zofran Inj) (02/16/17 16:30) Sodium Chlor 0.9% 1000 Ml Inj (Ns 1000 M (02/16/17 16:19) Famotidine Inj (Pepcid Inj) (02/16/17 16:30) Hydromorphone Pf Inj (Dilaudid Pf Inj) (02/16/17 16:30) Aspirin (Aspirin) (02/16/17 16:30) Sodium Chlor 0.9% 1000 Ml Inj (Ns 1000 M (02/16/17 17:09) Beta Hydroxybutyrate (Acetone) (02/16/17 17:09) Basic Metabolic Panel (Bmp) (02/16/17 17:37) Ct Thorax/ Chest Wo Iv Contras (02/16/17 ) Admit Order (Ed Use Only) (02/16/17 19:51) Labs Laboratory Tests Test 02/16/17 16:05 02/16/17 17:30 White Blood Count 10.5 TH/MM3 Red Blood Count 5.36 MIL/MM3 Hemoglobin 15.8 GM/DL Hematocrit 48.3 % Mean Corpuscular Volume 90.3 FL Mean Corpuscular Hemoglobin 29.4 PG Mean Corpuscular Hemoglobin Concent 32.6 % Red Cell Distribution Width 14.6 % Platelet Count 247 TH/MM3 Mean Platelet Volume 9.8 FL Neutrophils (%) (Auto) 77.5 % Lymphocytes (%) (Auto) 18.4 % Monocytes (%) (Auto) 3.8 % Eosinophils (%) (Auto) 0.0 % Basophils (%) (Auto) 0.3 % Neutrophils # (Auto) 8.1 TH/MM3 Lymphocytes # (Auto) 1.9 TH/MM3 Monocytes # (Auto) 0.4 TH/MM3 Eosinophils # (Auto) 0.0 TH/MM3 Basophils # (Auto) 0.0 TH/MM3 CBC Comment DIFF FINAL Differential Comment Blood Urea Nitrogen 22 MG/DL 22 MG/DL Creatinine 2.94 MG/DL 2.85 MG/DL Random Glucose 231 MG/DL 220 MG/DL Calcium Level 11.1 MG/DL 10.5 MG/DL Sodium Level 135 MEQ/L 137 MEQ/L Potassium Level 4.3 MEQ/L 4.4 MEQ/L Chloride Level 98 MEQ/L 99 MEQ/L Carbon Dioxide Level 21.2 MEQ/L 25.2 MEQ/L Anion Gap 16 MEQ/L 13 MEQ/L Estimat Glomerular Filtration Rate 26 ML/MIN 27 ML/MIN Total Bilirubin 1.1 MG/DL Direct Bilirubin 0.3 MG/DL Indirect Bilirubin 0.8 MG/DL Aspartate Amino Transf (AST/SGOT) 28 U/L Alanine Aminotransferase (ALT/SGPT) 46 U/L Alkaline Phosphatase 112 U/L Total Creatine Kinase 92 U/L Troponin I LESS THAN 0.02 NG/ML Total Protein 10.0 GM/DL Albumin 4.5 GM/DL Lipase 422 U/L Lactic Acid Level 2.3 mmol/L B-Hydroxybutyrate 1.85 MMOL/L MDM Medical Decision Making Medical Screen Exam Complete: Yes Emergency Medical Condition: Yes Medical Record Reviewed: Yes Interpretation(s) CBC & BMP Diagram 02/16/17 16:05 Calcium Level 11.1 H 02/16/17 17:30 Calcium Level 10.5 H Last Impressions Chest X-Ray 02/16/17 1554 Signed Impressions: Service Date/Time: Thursday, February 16, 2017 16:16 - CONCLUSION: Prominent ascending aortic contour is identified, aneurysm can have this appearance. The lungs are clear. Miguel Galeas MD Chest CT 02/16/17 0000 Signed Impressions: Service Date/Time: Thursday, February 16, 2017 18:48 - CONCLUSION: 1. 4.4 cm maximal dimension of the ascending aorta consistent with mild aneurysmal dilatation. 2. Atherosclerosis. 3. Renal cysts. 4. Gynecomastia. Miguel Galeas MD troponin negative, CKMB negative Lipase slightly elevated EKG shows sinus rhythm with no sign of acute ischemia or arrhythmia read by me and attending. Differential Diagnosis Chest pain versus a typical chest pain versus chronic kidney disease versus gastroenteritis versus peptic ulcer disease versus epigastric pain versus pancreatitis versus ACS versus normal exam Narrative Course 71-year-old male that presents to the ED for evaluation of chest pain and abdominal discomfort. Patient was properly examined and was found to have signs and symptoms consistent with appears to be acute gastroenteritis. Chest pain unclear but likely related to gastric brother tend ACS but we'll do an EKG and troponin as patient does have risk factors and fortunately for heart disease. Labs and imaging were ordered. Patient was given IV fluids and pain medications and antiemetics. Labs and imaging showed what appears to be possible aneurysm. Also slightly elevated lipase and elevated anion gap as well as lactic acid. Case was discussed in my attending who recommends CT of the thorax. CT of the thorax was done without contrast tonight to patient's chronic kidney disease and this showed what appears to be aneurysm. Appears to be new but appears to be stable at this time. Patient does have risk factors for ACS. Recommendation is for admission for chest pain rule out. This was discussed with Dr. Nair who agrees to admission to her service. 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
[2017-02-16 17:08] LABS: INDIRECT BILIRUBIN 0.8 MG/DL (0.0-0.8); TOTAL BILIRUBIN ADULT 1.1 MG/DL (0.2-1.0)
[2017-02-16 17:21] LABS: CREATINE KINASE 92 U/L (39-308)
[2017-02-16 18:30] LABS: BICARBONATE 25.2 MEQ/L (21.0-32.0); POTASSIUM 4.4 MEQ/L (3.5-5.1)
--- NOTE | 2017-02-16 19:08 | RADRPT ---
EXAM DATE/TIME: 02/16/2017 18:48 [facility] COMPARISON: CHEST SINGLE AP, February 16, 2017, 16:16. INDICATIONS : Chest pain. Abnormal chect x-ray. Evaluate for aneurysm. RADIATION DOSE: 6.7 CTDIvol (mGy) MEDICAL HISTORY : Hypertension. Cardiovascular disease Hepatitis C. Diabetes. SURGICAL HISTORY : None. ENCOUNTER: Initial ACUITY: 1 day PAIN SCALE: 6/10 LOCATION: chest TECHNIQUE: Volumetric scanning of the chest was performed. Using automated exposure control and adjustment of t he mA and/or kV according to patient size, radiation dose was kept as low as reasonably achievable to obtain optimal diagnostic quality images. DICOM format image data is available electronically for r eview and comparison. Follow-up recommendations for detected pulmonary nodules are based at a minimum on nodule size and pa tient risk factors according to Fleischner Society Guidelines. FINDINGS: There are atelectatic changes at the left lung base. There is no adenopathy. Coronary artery calcific ation is noted. Calcified right hilar subcentimeter short axis lymph node identified. There is mild d ilatation of the ascending aorta measuring 4.1 x 4.4 cm in AP and transverse dimension on axial image 37. Gynecomastia is present. There are bilateral renal cysts. Osseous structures are intact. CONCLUSION: 1. 4.4 cm maximal dimension of the ascending aorta consistent with mild aneurysmal dilatation. 2. Atherosclerosis. 3. Renal cysts. 4. Gynecomastia. Miguel Galeas MD on February 16, 2017 at 19:04 Board Certified Radiologist. This report was verified electronically.
[2017-02-16] MEDS ORDERED: ONDANSETRON HCL 4 MG/2 ML VIAL IVP PRN (20:15)
[2017-02-16] MEDS ORDERED: ACETAMINOPHEN/HYDROcodone 325 MG/5 MG TAB PO PRN (20:15)
[2017-02-16] MEDS ORDERED: LACTULOSE SYRUP 20 GM/30 ML CUP PO PRN (20:15)
[2017-02-16] MEDS ORDERED: ACETAMINOPHEN 325 MG TAB PO PRN (20:15)
[2017-02-16] MEDS ORDERED: NITROGLYCERIN 2% OINT 1 GM PACKET TOPICAL PRN (20:15)
[2017-02-16] MEDS ORDERED: SODIUM CHLOR 0.9% 1000 ML INJ 1,000 ML IV ONE (20:15)
[2017-02-16] MEDS ORDERED: SENNOSIDES 8.6 MG TAB PO PRN (20:15)
[2017-02-16] MEDS ORDERED: DEXTROSE 50% IN WATER 50 ML VIAL(D50) IV PUSH PRN (20:15)
[2017-02-16] MEDS ORDERED: GLUCAGON 1 MG/ML VIAL OTHER PRN (20:15)
[2017-02-16] MEDS ORDERED: BISACODYL 10 MG SUPP RECTAL PRN (20:15)
[2017-02-16] MEDS ORDERED: SODIUM CHLORIDE 0.9% FLUSH 10 ML FLUSH IV FLUSH PRN (20:15)
[2017-02-16] MEDS ORDERED: MAGNESIUM HYDROXIDE SUSP 30 ML CUP PO PRN (20:15)
[2017-02-16] MEDS ORDERED: MORPHINE SULFATE 4 MG/ML INJ IV PUSH PRN (20:15)
--- NOTE | 2017-02-16 20:15 | HHI.HP ---
[facility] Primary Care Physician Xu Arreaga M.D. Admission Diagnosis chest pain, r/o ACS, gastroenteritis Diagnoses: (1) Chest pain Diagnosis: Principal (2) Pancreatitis Diagnosis: Principal (3) Renal insufficiency Diagnosis: Principal (4) Lactic acidosis Diagnosis: Principal (5) HTN (hypertension) Diagnosis: Principal (6) Ascending aortic aneurysm Diagnosis: Principal (7) DM (diabetes mellitus) Travel History International Travel<30 Days: No Contact w/Intl Traveler <30 Da: No Traveled to Known Affected Are: No History of Present Illness This is a 71-year-old male with PMH of HTN, Hyperlipidemia, Hepatitis C and DM who presented to the ER w/ complaints of nausea, vomiting, diarrhea followed by c/o chest pain starting earlier today. Denies fever, chills, SOB, cough or sick contacts. On arrival, BP 166/100, HR 75, O2 sat 99% on RA, Afebrile. CBC unremarkable. Creatinine 2.85, previously 3.34 on 12/28/16. Lactic Acid 2.3. Troponin negative. Lipase 422. CXR with prominent ascending aortic contour, otherwise negative. CT Chest with 4.4 cm ascending aorta with mild aneurysmal dilatation, no previous imaging to compare. S/p IVF, ASA, Pepcid, Dilaudid and Morphine in ER w/ some improvement. Review of Systems Except as stated in HPI: all other systems reviewed are Neg ROS: 14 point review of systems otherwise negative. Past Family Social History Past Medical History PMH: HTN, Hyperlipidemia, Hepatitis C and DM Past Surgical History PAST SURGICAL HISTORY: Cholecystectomy, Hip Replacement, Appendectomy, Left Foot Surgery Allergies: Coded Allergies: No Known Allergies (Verified , 02/16/17) Family History PAST FAMILY HISTORY: Reviewed, positive for DM and CAD. Social History PAST SOCIAL HISTORY: Positive for alcohol. Negative for tobacco or drugs. Physical Exam Vital Signs Vital Signs Date Time Temp Pulse Resp B/P (MAP) Pulse Ox O2 Delivery O2 Flow Rate FiO2 02/16/17 16:47 (112) Room Air 02/16/17 16:36 91 18 96 Room Air 02/16/17 16:36 86 17 160/88 (112) 96 Room Air 02/16/17 15:47 75 13 166/100 (122) 99 Physical Exam PE: GENERAL: Middle-aged male in no acute distress. HEENT: PERRLA, EOMI. No scleral icterus or conjunctival pallor. No lid lag or facial droop. CARDIOVASCULAR: Regular rate and rhythm. No obvious murmurs to auscultation. No chest tenderness to palpation. RESPIRATORY: No obvious rhonchi or wheezing. Clear to auscultation. Breath sounds equal bilaterally. GASTROINTESTINAL: Abdomen soft, epigastric tenderness to palpation, nondistended. BS normal. MUSCULOSKELETAL: Extremities without clubbing, cyanosis, or edema. No obvious deformities. NEUROLOGICAL: Awake, alert and oriented x4. No focal neurologic deficits. Moving both upper and lower extremities spontaneously. Laboratory Laboratory Tests Test 02/16/17 16:05 02/16/17 17:30 White Blood Count 10.5 Red Blood Count 5.36 Hemoglobin 15.8 Hematocrit 48.3 Mean Corpuscular Volume 90.3 Mean Corpuscular Hemoglobin 29.4 Mean Corpuscular Hemoglobin Concent 32.6 Red Cell Distribution Width 14.6 Platelet Count 247 Mean Platelet Volume 9.8 Neutrophils (%) (Auto) 77.5 Lymphocytes (%) (Auto) 18.4 Monocytes (%) (Auto) 3.8 Eosinophils (%) (Auto) 0.0 Basophils (%) (Auto) 0.3 Neutrophils # (Auto) 8.1 Lymphocytes # (Auto) 1.9 Monocytes # (Auto) 0.4 Eosinophils # (Auto) 0.0 Basophils # (Auto) 0.0 CBC Comment DIFF FINAL Differential Comment Blood Urea Nitrogen 22 22 Creatinine 2.94 2.85 Random Glucose 231 220 Calcium Level 11.1 10.5 Sodium Level 135 137 Potassium Level 4.3 4.4 Chloride Level 98 99 Carbon Dioxide Level 21.2 25.2 Anion Gap 16 13 Estimat Glomerular Filtration Rate 26 27 Total Bilirubin 1.1 Direct Bilirubin 0.3 Indirect Bilirubin 0.8 Aspartate Amino Transf (AST/SGOT) 28 Alanine Aminotransferase (ALT/SGPT) 46 Alkaline Phosphatase 112 Total Creatine Kinase 92 Troponin I LESS THAN 0.02 Total Protein 10.0 Albumin 4.5 Lipase 422 Lactic Acid Level 2.3 B-Hydroxybutyrate 1.85 Result Diagram: 02/16/17 1605 02/16/17 0110 Caprini VTE Risk Assessment Caprini VTE Risk Assessment: No/Low Risk (score <= 1) Caprini Risk Assessment Model Point Value = 1 Point Value = 2 Point Value = 3 Point Value = 5 Age 41-60 Minor surgery BMI > 25 kg/m2 Swollen legs Varicose veins or History of unexplained or recurrent spontaneous Oral contraceptives or hormone replacement Sepsis (< 1 month) Serious lung disease, including pneumonia (< 1 month) Abnormal pulmonary function Acute myocardial infarction Congestive heart failure (< 1 month) History of inflammatory bowel disease Medical patient at bed rest Age 61-74 Arthroscopic surgery Major open surgery (> 45 min) Laparoscopic surgery (> 45 min) Malignancy Confined to bed (> 72 hours) Immobilizing plaster cast Central venous access Age >= 75 History of VTE Family history of VTE Factor V Leiden Prothrombin [id number] Lupus anticoagulant Anticardiolipin antibodies Elevated serum homocysteine Heparin-induced thrombocytopenia Other congenital or acquired thrombophilia Stroke (< 1 month) Elective arthroplasty Hip, pelvis, or leg fracture Acute spinal cord injury (< 1 month) Prophylaxis Regimen Total Risk Factor Score Risk Level Prophylaxis Regimen 0-1 Low Early ambulation 2 Moderate Order ONE of the following: *Sequential Compression Device (SCD) *Heparin 5000 units SQ BID 3-4 Higher Order ONE of the following medications: *Heparin 5000 units SQ TID *Enoxaparin/Lovenox 40 mg SQ daily (WT < 150 kg, CrCl > 30 mL/min) *Enoxaparin/Lovenox 30 mg SQ daily (WT < 150 kg, CrCl > 10-29 mL/min) *Enoxaparin/Lovenox 30 mg SQ BID (WT < 150 kg, CrCl > 30 mL/min) AND/OR *Sequential Compression Device (SCD) 5 or more Highest Order ONE of the following medications: *Heparin 5000 units SQ TID (Preferred with Epidurals) *Enoxaparin/Lovenox 40 mg SQ daily (WT < 150 kg, CrCl > 30 mL/min) *Enoxaparin/Lovenox 30 mg SQ daily (WT < 150 kg, CrCl > 10-29 mL/min) *Enoxaparin/Lovenox 30 mg SQ BID (WT < 150 kg, CrCl > 30 mL/min) AND *Sequential Compression Device (SCD) Assessment and Plan Problem List: (1) Chest pain ICD Code: R07.9 - Chest pain, unspecified (2) Pancreatitis ICD Code: K85.90 - Acute pancreatitis without necrosis or infection, unspecified (3) Renal insufficiency ICD Code: N28.9 - Disorder of kidney and ureter, unspecified (4) Lactic acidosis ICD Code: E87.2 - Acidosis (5) HTN (hypertension) ICD Code: I10 - Essential (primary) hypertension (6) Ascending aortic aneurysm ICD Code: I71.2 - Thoracic aortic aneurysm, without rupture (7) DM (diabetes mellitus) ICD Code: E11.9 - Type 2 diabetes mellitus without complications Status: Chronic Assessment and Plan A/P: 1. Chest Pain: associated w/ nausea/vomiting, likely GI etiology. Initial trop negative, EKG w/ no acute ischemia. ASA, Statin, B-Evi. Check serial cardiac enzymes. NTG/Morphine as needed. 2. Pancreatitis: Mild. Acute onset of nausea/vomiting earlier today. Lipase 422. Diet as tolerated. IVF, analgesics/antiemetics as needed. 3. Renal Insufficiency: Chronic. Creatinine 2.85, previously 3.34 on . IVF for hydration, repeat labs in a.m. 4. Lactic Acidosis: Mild. Lactic Acid 2.3. Likely secondary to dehydration, no evidence of sepsis. S/p IVF in ER, repeat Lactic Acid now normalized to 1.7. 5. Ascending Aortic Aneurysm: CT Chest w/ 4.4cm ascending aortic aneurysm w/ mild aneurysmal dilatation, images reviewed by me. No previous imaging for comparison. No indication for emergent intervention. Will need outpatient follow up w/ repeat imaging. 6. HTN: BP 160's, likely compounded by acute nausea/vomiting and pain, resume home medications, start Metoprolol. Monitor BP. 7. DM: Sliding scale w/ Accu-Cheks. Resume home Glyburide if taking adequate po. 8. DVT Prophylaxis: SCD/Anatoly. 9. Social work for d/c planning as needed. 10. Case discussed w/ ER physician at length. Problem Qualifiers (1) DM (diabetes mellitus): Qualified Codes: E11.9 - Type 2 diabetes mellitus without complications; Z79.4 - [facility] (current) use of insulin Bri Nair MD Feb 16, 2017 20:15
[2017-02-16] MEDS ORDERED: DOCUSATE SODIUM 50 MG/SENNA 8.6 MG TAB PO SCH (21:00)
[2017-02-16] MEDS: SODIUM CHLORIDE 0.9% FLUSH 10 ML FLUSH IV FLUSH SCH (21:37)
[2017-02-16] MEDS: INSULIN ASPART SUPPLEMENTAL SCALE SQ SCH (21:45)
[2017-02-16] MEDS: TAMSULOSIN HCL 0.4 MG CAP PO SCH (22:28)
[2017-02-17] VITALS (9 sets, daily range): BP systolic 111–139; BP diastolic 63–86; PULSE 58–72; RESP 16–24; TEMP 98.3–99.5; O2SAT 96–99
[2017-02-17 07:39] LABS: AUTOMATED NEUTROPHIL # 4.8 TH/MM3 (1.8-7.7); BASOPHIL % 0.5 % (0.0-2.0); EOSINOPHIL # 0.1 TH/MM3 (0-0.4); EOSINOPHIL % 1.3 % (0.0-4.0); HEMO FLAGS DIFF FINAL; MEAN CELL VOLUME 89.8 FL (80.0-100.0); MEAN CORPUSCULAR HGB CONC 32.3 % (32.0-36.0); MONO % 7.7 % (0.0-8.0); NEUT % 55.5 % (16.0-70.0); PLATELET COUNT 197 TH/MM3 (150-450); RED BLOOD COUNT 4.34 MIL/MM3 (4.50-5.90); RED CELL DISTRIBUTION WIDTH 14.7 % (11.6-17.2); WHITE BLOOD COUNT 8.6 TH/MM3 (4.0-11.0)
[2017-02-17] MEDS: INSULIN ASPART SUPPLEMENTAL SCALE SQ SCH ×4 (08:00→20:03)
[2017-02-17] MEDS ORDERED: PANTOPRAZOLE SODIUM 40 MG VIAL IV PUSH SCH (08:00)
[2017-02-17] MEDS ORDERED: glyBURIDE 5 MG TAB PO SCH (08:00)
[2017-02-17 08:25] LABS: ALKALINE PHOSPHATASE 78 U/L (45-117); ALT (GPT) 37 U/L (12-78); ANION GAP 9 MEQ/L (5-15); AST (GOT) 22 U/L (15-37); BICARBONATE 24.9 MEQ/L (21.0-32.0); BLOOD UREA NITROGEN 19 MG/DL (7-18); CHLORIDE 107 MEQ/L (98-107); GLOMERULAR FILTRATION RATE 35 ML/MIN (>89); POTASSIUM 3.6 MEQ/L (3.5-5.1); SODIUM (NA) 141 MEQ/L (136-145); TOTAL BILIRUBIN ADULT 0.9 MG/DL (0.2-1.0)
[2017-02-17] MEDS ORDERED: PRAVASTATIN SOD 40 MG TAB PO SCH (09:00)
[2017-02-17] MEDS ORDERED: METOPROLOL TARTRATE 25 MG TAB PO SCH (09:00)
[2017-02-17] MEDS ORDERED: FAMOTIDINE 20 MG/2 ML VIAL IV PUSH SCH (09:00)
[2017-02-17] MEDS: ASPIRIN EC 81 MG TABEC PO SCH (09:08)
[2017-02-17] MEDS: SODIUM CHLORIDE 0.9% FLUSH 10 ML FLUSH IV FLUSH SCH ×2 (09:11→20:04)
--- NOTE | 2017-02-17 09:12 | HHI.PR ---
Subjective Remarks Follow-up for vomiting and chest pain. Patient states that about 2 days ago he ate some chicken that he found out was left out overnight. He states that after he had that shaking he became sick and was vomiting for 2 days. He denies any further nausea or vomiting since admission and is feeling much better at this time. He states his stools were a little hard yesterday, none since admission. He denies any abdominal pain. He denies any alcohol or tobacco use. He denies any history of heart disease. He does state that last night he had some chest discomfort that lasted approximately an hour and was not sharp. Objective Vitals Vital Signs Date Time Temp Pulse Resp B/P (MAP) Pulse Ox O2 Delivery O2 Flow Rate FiO2 02/17/17 07:34 98.7 63 16 111/65 (80) 97 02/17/17 03:55 62 02/17/17 03:43 98.3 72 18 139/86 (103) 99 02/16/17 23:24 67 02/16/17 23:16 98.7 65 19 114/81 (92) 100 02/16/17 22:36 98.0 65 19 159/91 (113) 93 02/16/17 21:50 64 18 136/81 (99) 98 02/16/17 20:24 76 18 159/86 (110) 98 Room Air 02/16/17 16:47 (112) Room Air 02/16/17 16:36 91 18 96 Room Air 02/16/17 16:36 86 17 160/88 (112) 96 Room Air 02/16/17 15:47 75 13 166/100 (122) 99 I/O 02/16/17 02/16/17 02/16/17 02/17/17 02/17/17 02/17/17 07:00 15:00 23:00 07:00 15:00 23:00 Intake Total 2240 ml Balance 2240 ml Intake Oral 240 ml IV Total 2000 ml Result Diagram: 02/17/17 0620 02/17/17 0620 Imaging Last Impressions Chest X-Ray 02/16/17 1554 Signed Impressions: Service Date/Time: Thursday, February 16, 2017 16:16 - CONCLUSION: Prominent ascending aortic contour is identified, aneurysm can have this appearance. The lungs are clear. Miguel Galeas MD Chest CT 02/16/17 0000 Signed Impressions: Service Date/Time: Thursday, February 16, 2017 18:48 - CONCLUSION: 1. 4.4 cm maximal dimension of the ascending aorta consistent with mild aneurysmal dilatation. 2. Atherosclerosis. 3. Renal cysts. 4. Gynecomastia. Miguel Galeas MD Objective Remarks GENERAL: Well-developed well-nourished. In no acute distress. Legally blind. SKIN: Warm and dry. No lesions noted. HEENT: Normocephalic. Pupils equal and round. Mucous membranes pink and moist. CARDIOVASCULAR: Regular rate and rhythm. No murmur appreciated. RESPIRATORY: No accessory muscle use. Clear to auscultation. Breath sounds equal bilaterally. GASTROINTESTINAL: Abdomen soft, non-tender, nondistended. Bowel sounds x4. MUSCULOSKELETAL: No obvious deformities. No clubbing or cyanosis. No edema. NEUROLOGICAL: Awake and alert. No focal neurological deficits. Moves upper and lower extremities spontaneously. Normal speech. PSYCHIATRIC: Appropriate mood and affect; insight and judgment normal. A/P Problem List: (1) Chest pain ICD Code: R07.9 - Chest pain, unspecified Status: Acute (2) Renal insufficiency ICD Code: N28.9 - Disorder of kidney and ureter, unspecified Status: Acute (3) Lactic acidosis ICD Code: E87.2 - Acidosis Status: Resolved (4) HTN (hypertension) ICD Code: I10 - Essential (primary) hypertension Status: Chronic (5) Ascending aortic aneurysm ICD Code: I71.2 - Thoracic aortic aneurysm, without rupture Status: Acute (6) DM (diabetes mellitus) ICD Code: E11.9 - Type 2 diabetes mellitus without complications Status: Chronic (7) Gastroenteritis and colitis, viral ICD Code: A08.4 - Gastroenteritis and colitis, viral Status: Acute Assessment and Plan 71-year-old male with PMH of HTN, Hyperlipidemia, Hepatitis C and DM who presented w/ complaints of nausea, vomiting followed by c/o chest pain Chest Pain: Atypical. Seems secondary to vomiting/GI etiology. EKG w/ NSR, no ischemic changes. Troponin negative 3. Although symptoms atypical, patient does have risk factors with hypertension and diabetes. Offered stress test and the patient will like to proceed, check Lexiscan today. Start on aspirin. Acute gastroenteritis: Patient with 2 days of vomiting after eating chicken that was left out. Symptoms have improved. Lipase 422, no abdominal pain, repeat. Diet as tolerated. IVF. Antiemetics as needed. PPI. Normocytic anemia: Hemoglobin 15.8 at admission, previously 13.6 on 12/28/16, likely hemoconcentrated due to dehydration. Hemoglobin did drop to 12.6 overnight, dilutional?, repeat H&H. KE on CKD stage 3: Creatinine 2.85 at admission. Creatinine improved to 2.27 with IVF. Monitor. Lactic Acidosis: Mild. Lactic Acid 2.3, improved to 1.7 with IVF. Afebrile with no leukocytosis. Improved. Ascending Aortic Aneurysm: CT Chest performed in the ED with incidental finding of 4.4cm ascending aortic aneurysm w/ mild aneurysmal dilatation. No previous imaging for comparison. Outpatient follow-up. HTN: Continue home amlodipine. Monitor. DM: Hold home glyburide for now. Sliding scale w/ Accu-Cheks. DVT Prophylaxis: SCD/Anatoly. Addendum 1300: Patient had another episode of vomiting after trying to eat lunch , consult GI. Stress test wasn't able to be performed today secondary to caffeine intake, will be done tomorrow. Problem Qualifiers (1) Chest pain: (2) HTN (hypertension): Qualified Codes: I10 - Essential (primary) hypertension (3) DM (diabetes mellitus): Qualified Codes: E11.9 - Type 2 diabetes mellitus without complications; Z79.4 - [facility] (current) use of insulin Deven Hampton Feb 17, 2017 09:12
[2017-02-17] MEDS ORDERED: PANTOPRAZOLE SOD 40 MG DELAYED RELEASE TAB PO SCH (09:15)
[2017-02-17] MEDS ORDERED: D5-1/2 NS + KCL 20 MEQ INJ 1,000 ML IV SCH (10:00)
--- NOTE | 2017-02-17 12:41 | EKG ---
Date Performed: 02/16/2017 Time Performed: 16:00:33 PTAGE: 71 years EKG: Sinus rhythm NORMAL ECG Compared to prior tracing no significant change PREVIOUS TRACING : 02/21/2016 16.47 DOCTOR: Matthew Dodson Interpretating Date/Time 02/17/2017 12:36:31
[2017-02-17] MEDS: PANTOPRAZOLE SODIUM 40 MG VIAL IV PUSH SCH (14:29)
[2017-02-17 16:00] LABS: HEMATOCRIT 41.4 % (39.0-51.0); REVIEW FLAG FINAL
--- NOTE | 2017-02-17 16:36 | PD.CONS ---
HPI History of Present Illness This is a 71 year old male with hep C , DM, legally blind who presented with nausea, vomiting, abd pain. Onset 2-3 days ago, after eating bad chicken. He ate chicken that had been out all night, it was warm when he ate it. He is currently tolerating fluids, he said he had eggs and koroma for breakfast and threw up the eggs because they are cold. Denies diarrhea, constipation. No pain at this time. he says he had an EGD and colonoscopy years ago, cannot remembers where or what the findings were exactly, recalls no abnormal findings. He says overall he is feeling better. (Leslie Pichardo) PFSH Past Medical History PMH: HTN, Hyperlipidemia, Hepatitis C and DM Past Surgical History PAST SURGICAL HISTORY: Cholecystectomy, Hip Replacement, Appendectomy, Left Foot Surgery (Leslie Pichardo) Coded Allergies: No Known Allergies (Verified , 02/16/17) Family History PAST FAMILY HISTORY: Reviewed, positive for DM and CAD. Social History PAST SOCIAL HISTORY: Positive for alcohol. Negative for tobacco or drugs. (Leslie Pichardo) Review of Systems Constitutional: DENIES: Fever Ears, nose, mouth, throat: DENIES: Throat pain Respiratory: DENIES: Hemoptysis Cardiovascular: DENIES: Chest pain Gastrointestinal: COMPLAINS OF: Nausea, Vomiting, DENIES: Abdominal pain, Black stools, Bloody stools, Constipation, Diarrhea Musculoskeletal: DENIES: Joint Swelling Integumentary: DENIES: Pruritus Neurologic: DENIES: Headache Psychiatric: DENIES: Confusion (Leslie Pichardo) GI Exam Vitals I&O Vital Signs Date Time Temp Pulse Resp B/P (MAP) Pulse Ox O2 Delivery O2 Flow Rate FiO2 02/17/17 15:35 99.2 59 24 115/63 (80) 96 02/17/17 12:11 99.5 63 22 127/70 (89) 96 02/17/17 07:34 98.7 63 16 111/65 (80) 97 02/17/17 07:05 66 02/17/17 03:55 62 02/17/17 03:43 98.3 72 18 139/86 (103) 99 02/16/17 23:24 67 02/16/17 23:16 98.7 65 19 114/81 (92) 100 02/16/17 22:36 98.0 65 19 159/91 (113) 93 02/16/17 21:50 64 18 136/81 (99) 98 02/16/17 20:24 76 18 159/86 (110) 98 Room Air 02/16/17 16:47 (112) Room Air 02/16/17 16:36 91 18 96 Room Air 02/16/17 16:36 86 17 160/88 (112) 96 Room Air I/O 02/16/17 02/16/17 02/16/17 02/17/17 02/17/17 02/17/17 07:00 15:00 23:00 07:00 15:00 23:00 Intake Total 2240 ml 990 ml Output Total 400 ml 280 ml Balance 2240 ml 590 ml -280 ml Intake Oral 240 ml IV Total 2000 ml 990 ml Output Urine Total 400 ml 280 ml Laboratory Test 02/16/17 17:30 02/16/17 20:30 02/16/17 23:34 02/17/17 06:20 Blood Urea Nitrogen 22 MG/DL 19 MG/DL Creatinine 2.85 MG/DL 2.27 MG/DL Random Glucose 220 MG/DL 114 MG/DL Calcium Level 10.5 MG/DL 8.5 MG/DL Sodium Level 137 MEQ/L 141 MEQ/L Potassium Level 4.4 MEQ/L 3.6 MEQ/L Chloride Level 99 MEQ/L 107 MEQ/L Carbon Dioxide Level 25.2 MEQ/L 24.9 MEQ/L Anion Gap 13 MEQ/L 9 MEQ/L Estimat Glomerular Filtration Rate 27 ML/MIN 35 ML/MIN Lactic Acid Level 2.3 mmol/L 1.7 mmol/L B-Hydroxybutyrate 1.85 MMOL/L Troponin I 0.02 NG/ML 0.02 NG/ML White Blood Count 8.6 TH/MM3 Red Blood Count 4.34 MIL/MM3 Hemoglobin 12.6 GM/DL Hematocrit 39.0 % Mean Corpuscular Volume 89.8 FL Mean Corpuscular Hemoglobin 29.0 PG Mean Corpuscular Hemoglobin Concent 32.3 % Red Cell Distribution Width 14.7 % Platelet Count 197 TH/MM3 Mean Platelet Volume 9.5 FL Neutrophils (%) (Auto) 55.5 % Lymphocytes (%) (Auto) 35.0 % Monocytes (%) (Auto) 7.7 % Eosinophils (%) (Auto) 1.3 % Basophils (%) (Auto) 0.5 % Neutrophils # (Auto) 4.8 TH/MM3 Lymphocytes # (Auto) 3.0 TH/MM3 Monocytes # (Auto) 0.7 TH/MM3 Eosinophils # (Auto) 0.1 TH/MM3 Basophils # (Auto) 0.0 TH/MM3 CBC Comment DIFF FINAL Differential Comment Total Protein 7.1 GM/DL Albumin 3.1 GM/DL Alkaline Phosphatase 78 U/L Aspartate Amino Transf (AST/SGOT) 22 U/L Alanine Aminotransferase (ALT/SGPT) 37 U/L Total Bilirubin 0.9 MG/DL Lipase 435 U/L Test 02/17/17 14:36 Hemoglobin 13.6 GM/DL Hematocrit 41.4 % Physical Examination HEENT: Pupils round and reactive to light; normocephalic; atraumatic; no jaundice. CHEST: CTA CARDIAC: RRR ABDOMEN: Soft, nondistended, nontender; no hepatosplenomegaly; bowel sounds are present in all four quadrants. EXTREMITIES: No clubbing, cyanosis, or edema. SKIN: Normal; no rash; no jaundice. 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 (Leslie Pichardo) Assessment and Plan Plan ASSESSMENT - n/v, abd pain - unclear etiology, could be food related, admits eating chicken left out overnight. abd pain resolved, tolerating some PO intake, feeling better PLAN - CARMENCITA - consider EGD if no improvement or worsening - supportive care This pt seen by myself and Dr Johnson and this note is written on his behalf (Leslie Pichardo) Physician Comments Seen and examined with MAKEDA, doing well now. Asking to eat. Elevated liipase with normal LFTs. Check ct without iv contrast. Stress test planned for tomorrow. ? egd if symptoms persist. Thankyou (Zoya Johnson MD) Leslie Pichardo Feb 17, 2017 16:36 Zoya Johnson MD Feb 17, 2017 17:50
[2017-02-17] MEDS: D5-1/2 NS + KCL 20 MEQ INJ 1,000 ML IV SCH (18:26)
[2017-02-17] MEDS ORDERED: DIATRIZOATE MEGLUM/DIATRIZOATE SOD 9 ML CUP PO ONE (19:15)
[2017-02-17] MEDS: TAMSULOSIN HCL 0.4 MG CAP PO SCH (21:45)
[2017-02-18] VITALS (7 sets, daily range): BP systolic 99–142; BP diastolic 55–80; PULSE 52–61; RESP 18–20; TEMP 98.3–99; O2SAT 96–99
--- NOTE | 2017-02-18 02:21 | RADRPT ---
EXAM DATE/TIME: 02/18/2017 01:32 [facility] COMPARISON: CT ABDOMEN & PELVIS W/O CONTRAST, December 28, 2016, 4:20. INDICATIONS : Diffused abdominal pain. ORAL CONTRAST: Prescribed oral contrast ingested. RADIATION DOSE: 10.03 CTDIvol (mGy) MEDICAL HISTORY : Cardiovascular disease. Hepatitis C. Pancreatitis.Hypertension. Diabetes. SURGICAL HISTORY : Cholecystectomy. Appendectomy.Left hip surgery. ENCOUNTER: Initial ACUITY: 1 day PAIN SCALE: 6/10 LOCATION: Bilateral abdomen TECHNIQUE: Volumetric scanning of the abdomen and pelvis was performed. Using automated exposure control and ad justment of the mA and/or kV according to patient size, radiation dose was kept as low as reasonably achievable to obtain optimal diagnostic quality images. DICOM format image data is available electro nically for review and comparison. FINDINGS: LOWER LUNGS: The visualized lower lungs are clear. LIVER: Homogeneous density without lesion. There is no dilation of the biliary tree. Gallbladder surgically absent.. SPLEEN: Normal size without lesion. PANCREAS: Within normal limits. KIDNEYS: Stable bilateral renal cysts. No stone or hydronephrosis. ADRENAL GLANDS: Within normal limits. VASCULAR: There is no aortic aneurysm. BOWEL/MESENTERY: The stomach, small bowel, and colon demonstrate no acute abnormality. There is no free intraperitone al air or fluid. ABDOMINAL WALL: Within normal limits. RETROPERITONEUM: There is no lymphadenopathy. BLADDER: No wall thickening or mass. REPRODUCTIVE: Within normal limits. INGUINAL: There is no lymphadenopathy or hernia. MUSCULOSKELETAL: Left total hip arthroplasty. Severe degenerative changes in the spine and right hip. CONCLUSION: Stable CT appearance of the abdomen and pelvis with no acute findings. Eric Smiley MD on February 18, 2017 at 2:16 Board Certified Radiologist. This report was verified electronically.
[2017-02-18] MEDS: PANTOPRAZOLE SODIUM 40 MG VIAL IV PUSH SCH ×2 (03:18→12:19)
[2017-02-18] MEDS: D5-1/2 NS + KCL 20 MEQ INJ 1,000 ML IV SCH (06:40)
[2017-02-18] MEDS: INSULIN ASPART SUPPLEMENTAL SCALE SQ SCH ×2 (08:00→12:20)
--- NOTE | 2017-02-18 08:35 | HHI.PR ---
Subjective Remarks Follow-up for nausea, vomiting, and chest pain. No further episodes of vomiting since lunch yesterday. The patient states he is hungry and wants to eat. He denies any abdominal pain. Going for stress test this morning. He denies any chest pain or shortness of breath. Objective Vitals Vital Signs Date Time Temp Pulse Resp B/P (MAP) Pulse Ox O2 Delivery O2 Flow Rate FiO2 02/18/17 07:32 98.6 20 118/74 (89) 97 02/18/17 07:25 53 02/18/17 05:09 53 18 99/55 (70) 97 02/18/17 04:03 54 02/18/17 00:20 52 02/18/17 00:08 99.0 54 18 109/71 (84) 96 02/17/17 19:24 98.7 62 18 114/79 (91) 96 02/17/17 19:05 60 02/17/17 15:35 99.2 59 24 115/63 (80) 96 02/17/17 15:05 58 02/17/17 12:11 99.5 63 22 127/70 (89) 96 I/O 02/17/17 02/17/17 02/17/17 02/18/17 02/18/17 02/18/17 07:00 15:00 23:00 07:00 15:00 23:00 Intake Total 990 ml 300 ml Output Total 400 ml 690 ml Balance 590 ml -390 ml Intake Oral 300 ml IV Total 990 ml Output Urine Total 400 ml 690 ml Result Diagram: 02/17/17 1436 02/17/17 0620 Imaging Last Impressions Chest X-Ray 02/16/17 1554 Signed Impressions: Service Date/Time: Thursday, February 16, 2017 16:16 - CONCLUSION: Prominent ascending aortic contour is identified, aneurysm can have this appearance. The lungs are clear. Miguel Galeas MD Chest CT 02/16/17 0000 Signed Impressions: Service Date/Time: Thursday, February 16, 2017 18:48 - CONCLUSION: 1. 4.4 cm maximal dimension of the ascending aorta consistent with mild aneurysmal dilatation. 2. Atherosclerosis. 3. Renal cysts. 4. Gynecomastia. Miguel Galeas MD Objective Remarks GENERAL: Well-developed well-nourished. In no acute distress. Legally blind. SKIN: Warm and dry. No lesions noted. HEENT: Normocephalic. Pupils equal and round. Mucous membranes pink and moist. CARDIOVASCULAR: Regular rate and rhythm. No murmur appreciated. RESPIRATORY: No accessory muscle use. Clear to auscultation. Breath sounds equal bilaterally. GASTROINTESTINAL: Abdomen soft, non-tender, nondistended. Bowel sounds x4. MUSCULOSKELETAL: No obvious deformities. No clubbing or cyanosis. No edema. NEUROLOGICAL: Awake and alert. No focal neurological deficits. Moves upper and lower extremities spontaneously. Normal speech. PSYCHIATRIC: Appropriate mood and affect; insight and judgment normal. A/P Problem List: (1) Chest pain ICD Code: R07.9 - Chest pain, unspecified Status: Acute (2) Renal insufficiency ICD Code: N28.9 - Disorder of kidney and ureter, unspecified Status: Chronic (3) Lactic acidosis ICD Code: E87.2 - Acidosis Status: Resolved (4) HTN (hypertension) ICD Code: I10 - Essential (primary) hypertension Status: Chronic (5) Ascending aortic aneurysm ICD Code: I71.2 - Thoracic aortic aneurysm, without rupture Status: Acute (6) DM (diabetes mellitus) ICD Code: E11.9 - Type 2 diabetes mellitus without complications Status: Chronic (7) Gastroenteritis and colitis, viral ICD Code: A08.4 - Gastroenteritis and colitis, viral Status: Acute Assessment and Plan 71-year-old male with PMH of HTN, Hyperlipidemia, Hepatitis C and DM who presented w/ complaints of nausea, vomiting followed by c/o chest pain Chest Pain: Atypical. Seems secondary to vomiting/GI etiology. EKG w/ NSR, no ischemic changes. Troponin negative 3. Although symptoms atypical, patient does have risk factors with hypertension and diabetes. Offered stress test and the patient will like to proceed, check Lexiscan today. Started on aspirin. Acute gastroenteritis: Patient with 2 days of vomiting after eating chicken that was left out. Symptoms initially improved, the patient had additional episode of vomiting after diet advanced. Lipase 400's, no abdominal pain. GI consulted and patient reported improved symptoms. GI ordered abdominal CT which was unremarkable. After stress test will plan to diet as tolerated. IVF. Antiemetics as needed. PPI. Normocytic anemia: Hemoglobin currently 13.6, previously 13.6 on 12/28/16, stable. KE on CKD stage 3: Creatinine 2.85 at admission. Creatinine improved to 2.27 with IVF. Monitor. Lactic Acidosis: Mild. Lactic Acid 2.3, improved to 1.7 with IVF. Afebrile with no leukocytosis. Improved. Ascending Aortic Aneurysm: CT Chest performed in the ED with incidental finding of 4.4cm ascending aortic aneurysm w/ mild aneurysmal dilatation. No previous imaging for comparison. Outpatient follow-up. HTN: Continue home amlodipine. Monitor. DM: Hold home glyburide for now. Sliding scale w/ Accu-Cheks. DVT Prophylaxis: SCD/Anatoly. Discharge Planning Follow-up results of stress test. The stress test is unremarkable will attempt to advance diet as tolerated, and if not improved then EGD with GI. If the stress test is unremarkable and patient tolerates diet then discharge planning. Addendum 1345: Stress test is nonischemic. Patient ate his entire lunch and denies any nausea or abdominal pain. He wants to go home. Cleared by GI. Discharge home today with prescription for Protonix. Problem Qualifiers (1) Chest pain: (2) HTN (hypertension): Qualified Codes: I10 - Essential (primary) hypertension (3) DM (diabetes mellitus): Qualified Codes: E11.9 - Type 2 diabetes mellitus without complications; Z79.4 - vermin exterminator (current) use of insulin Deven Hampton Feb 18, 2017 08:35
[2017-02-18] MEDS ORDERED: REGADENOSON INJ 0.4 MG/5 ML SYR ONE (09:17)
[2017-02-18] MEDS: ASPIRIN EC 81 MG TABEC PO SCH (11:25)
[2017-02-18] MEDS: SODIUM CHLORIDE 0.9% FLUSH 10 ML FLUSH IV FLUSH SCH (11:25)
--- NOTE | 2017-02-18 12:03 | RADRPT ---
EXAM DATE/TIME: 02/18/2017 08:55 [facility] COMPARISON: No previous studies available for comparison. INDICATIONS : Substernal chest pain with nausea. Angina. DOSE: 26.6 mCi Tc99m Myoview at stress. 8.5 mCi Tc99m Myoview at rest. 0.4 mg Lexiscan STRESS SYMPTOMS: None noted. EJECTION FRACTION: 66% MEDICAL HISTORY : Hypertension. Diabetes mellitus type 2. SURGICAL HISTORY : Cholecystectomy. Appendectomy. Left hip replacement. ENCOUNTER: Initial ACUITY: 1 day PAIN SCALE: 5/10 LOCATION: Substernal chest TECHNIQUE: The patient underwent pharmacologic stress with infusion of prescribed dose. Continuous ECG tracing was monitored during stress. Gated SPECT imaging was performed after stress and conventional SPECT i maging was performed at rest. The examination was performed on a SPECT/CT scanner, both attenuation and non-corrected datasets were reviewed. FINDINGS: DISTRIBUTION: The maximum perfused segment at stress is in the septum wall. PERFUSION STUDY: The pattern of perfusion at stress is within normal limits. GATED STUDY: There is intact wall motion and thickening without hypokinetic or dyskinetic segments. CONCLUSION: No reversible perfusion defect to suggest stress-induced myocardial ischemia identified. RISK CATEGORY: Low (<1% Annual Mortality Rate) Deangelo Rodriguez MD on February 18, 2017 at 11:45 Board Certified Radiologist. This report was verified electronically.
[2017-02-18] MEDS ORDERED: PANT40TA3 PO (13:49)
[2017-02-18] MEDS ORDERED: ASPI-99 PO (13:49)
--- NOTE | 2017-02-18 14:11 | HHI.GIFU ---
Subjective Remarks Pt resting in bed. Just ate lunch. No n/v. Feels better. (Leslie Pichardo) Objective Vitals I&O Vital Signs Date Time Temp Pulse Resp B/P (MAP) Pulse Ox O2 Delivery O2 Flow Rate FiO2 02/18/17 11:18 98.3 61 20 142/80 (100) 99 02/18/17 07:32 98.6 20 118/74 (89) 97 02/18/17 07:25 53 02/18/17 05:09 53 18 99/55 (70) 97 02/18/17 04:03 54 02/18/17 00:20 52 02/18/17 00:08 99.0 54 18 109/71 (84) 96 02/17/17 19:24 98.7 62 18 114/79 (91) 96 02/17/17 19:05 60 02/17/17 15:35 99.2 59 24 115/63 (80) 96 02/17/17 15:05 58 I/O 02/17/17 02/17/17 02/17/17 02/18/17 02/18/17 02/18/17 07:00 15:00 23:00 07:00 15:00 23:00 Intake Total 990 ml 300 ml 250 ml Output Total 400 ml 690 ml 400 ml Balance 590 ml -390 ml -150 ml Intake Oral 300 ml 250 ml IV Total 990 ml Output Urine Total 400 ml 690 ml 400 ml Laboratory Laboratory Tests Test 02/17/17 14:36 Hemoglobin 13.6 Hematocrit 41.4 Physical Exam HEENT: normocephalic; atraumatic; no jaundice. CHEST: CTA CARDIAC: RRR ABDOMEN: Soft, nondistended, nontender; no hepatosplenomegaly; bowel sounds are present in all four quadrants. EXTREMITIES: No clubbing, cyanosis, or edema. SKIN: Normal; no rash; no jaundice. 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 (Leslie Pichardo) Assessment and Plan Plan ASSESSMENT - n/v, abd pain - unclear etiology, could be food related, admits eating chicken left out overnight. abd pain, n/v improved, pt tolerating diet, feels better. PLAN - CARMENCITA - consider EGD if symptoms return - supportive care - ok for d/c from GI standpoint This pt seen by myself and Dr Johnson and this note is written on his behalf (Leslie Pichardo) Physician Comments Seen and examined with MAKEDA, symptoms resolved. CT -ve for source of pain. Needs EGD, can be done as outpt. Please arrange fu with gi upon dc. Thank you (Zoya Johnson MD) Leslie Pichardo Feb 18, 2017 14:11 Zoya Johnson MD Feb 18, 2017 16:45
[2017-02-18 16:18] LABS: AUTOMATED NEUTROPHIL # 3.2 TH/MM3 (1.8-7.7); BASOPHIL % 0.7 % (0.0-2.0); EOSINOPHIL # 0.1 TH/MM3 (0-0.4); EOSINOPHIL % 1.4 % (0.0-4.0); HEMATOCRIT 38.7 % (39.0-51.0); HEMO FLAGS DIFF FINAL; LYMPH % 39.6 % (9.0-44.0); LYMPHOCYTE # 2.5 TH/MM3 (1.0-4.8); MEAN CELL VOLUME 89.8 FL (80.0-100.0); MEAN CORPUSCULAR HGB CONC 32.3 % (32.0-36.0); MONO % 7.7 % (0.0-8.0); NEUT % 50.6 % (16.0-70.0); PLATELET COUNT 185 TH/MM3 (150-450); RED BLOOD COUNT 4.31 MIL/MM3 (4.50-5.90); RED CELL DISTRIBUTION WIDTH 14.7 % (11.6-17.2); WHITE BLOOD COUNT 6.4 TH/MM3 (4.0-11.0)
[2017-02-18 16:43] LABS: BICARBONATE 26.4 MEQ/L (21.0-32.0)
== END 2017-02-18 16:50 | disposition home or self-care (01) ==
LOC: NEPE 15:45 → NEDA 19:53 → NEPHCDU 22:08
PROVIDERS: ADMIT Hospitalist; ATTEND Hospitalist
DX: R07.9 Chest pain, unspecified (principal); K85.90 Acute pancreatitis without necrosis or infection, unspecified; A08.4 Viral intestinal infection, unspecified; N28.9 Disorder of kidney and ureter, unspecified; E87.2 Acidosis; N28.1 Cyst of kidney, acquired; N62 Hypertrophy of breast; R07.2 Precordial pain; I20.9 Angina pectoris, unspecified; R11.0 Nausea; R74.8 Abnormal levels of other serum enzymes; R07.89 Other chest pain; D64.9 Anemia, unspecified; I12.9 Hypertensive chronic kidney disease with stage 1 through stage 4 chronic kidney disease, or unspecified chronic kidney disease; E11.22 Type 2 diabetes mellitus with diabetic chronic kidney disease; N18.3 Chronic kidney disease, stage 3 (moderate); I71.2 Thoracic aortic aneurysm, without rupture; E78.00 Pure hypercholesterolemia, unspecified; B19.20 Unspecified viral hepatitis C without hepatic coma; K21.9 Gastro-esophageal reflux disease without esophagitis; H54.8 Legal blindness, as defined in USA; M19.90 Unspecified osteoarthritis, unspecified site; Z79.899 Other long term (current) drug therapy; Z79.4 Long term (current) use of insulin
CPT/HCPCS: 71010; 71250; 74176; 78452; 80048; 80053; 80076; 82010; 82550; 82948; 83605; 83690; 84484; 85014; 85018; 85025; 93005; 93017; 96361; 96365; 96366; 96372; 96375; 96376; A9502; C9113; G0378; J1170; J1815; J2405; J2785; J3480; J7030; Q9963